=== PATIENT | male | born 1985 | race Caucasian/White ===

== ENCOUNTER 2022-06-20 02:34 | Emergency (ER) | payer OTHER, SELFPAY ==
--- NOTE | ~2022-06-20 | XR_ITS ---
XR ankle LT min 3V 06/20/2022 02:55 INDICATION: Left ankle pain PROCEDURE: 4 views left ankle COMPARISON: 06/20/2022 FINDINGS: Fracture, dislocation or subluxation is not identified. The soft tissues appear within norm al limits. No foreign bodies are identified. IMPRESSION: 1: NO ACUTE BONE OR JOINT ABNORMALITY IDENTIFIED. Reviewed, dictated and finalized at location A.
--- NOTE | ~2022-06-20 | XR_ITS ---
XR foot LT min 3V 06/20/2022 02:55 INDICATION: Left foot pain after injury PROCEDURE: 4 views left foot COMPARISON: No prior studies for comparison. FINDINGS: Fracture, dislocation or subluxation is not identified. Lisfranc joint intact. The soft tis sues appear within normal limits. No foreign bodies are identified. IMPRESSION: 1: NO ACUTE BONE OR JOINT ABNORMALITY IDENTIFIED. Reviewed, dictated and finalized at location A.
[2022-06-20 02:36] VITALS: BP 117/69; PULSE 75; RESP 20; TEMP 36.7; O2SAT 100
--- NOTE | 2022-06-20 04:25 | ED_ITS ---
HPI - Extremity Injury (Lower) General Chief Complaint: Extremity Injury, Lower Stated Complaint: ankle pain Time Seen by Provider: 06/20/22 03:49 History of Present Illness HPI Narrative: Patient is a 37-year-old male presenting with left ankle pain. Patient was playing hockey last night when he was struck the medial aspect of his left foot/ankle with a puck. States he has had severe pain since this time that is worse with ambulation. He has not tried anything for pain. He denies numbness or weakness. He denies further injury or complaint. Review of Systems Review of Systems: All systems reviewed & are unremarkable except as noted in HPI and below Exam Narrative: GENERAL: Well-appearing, well-nourished, and in no acute distress. HEAD: Normocephalic, atraumatic. EYES: PERRLA and EOMI. ENT: Nares clear, no rhinorrhea or epistaxis. Mucous membranes moist. NECK: Supple. CHEST: Clear to auscultation. No respiratory distress. HEART: Regular rate and rhythm. No murmur heard. Normal peripheral pulses. ABDOMEN: Soft, nontender, nondistended, normal active bowel sounds. EXTREMITIES: Normal range of motion. Ecchymosis and tenderness to medial aspect of the left foot extending into the medial malleolus, neurovascularly intact SKIN: Warm, dry, no rash. NEURO: No focal deficits. Alert and oriented x3. PSYCH: Normal mood and affect. Course Vital Signs Vital signs: Vital Signs Temperature 98.1 F 06/20/22 02:36 Pulse Rate 75 06/20/22 02:36 Respiratory Rate 20 06/20/22 02:36 Blood Pressure 117/69 06/20/22 02:36 Pulse Oximetry 100 06/20/22 02:36 Oxygen Delivery Room Air 06/20/22 02:36 Temperature 98 F 06/20/22 04:38 Pulse Rate 70 06/20/22 04:38 Respiratory Rate 18 06/20/22 04:38 Blood Pressure 118/79 06/20/22 04:38 Pulse Oximetry 99 06/20/22 04:38 Oxygen Delivery Room Air 06/20/22 02:36 MDM - Extremity Injury (Lower) MDM Narrative Medical decision making narrative: Patient is a 37-year-old male presenting with left foot pain after being struck by a hockey puck. Vitals within normal limits. Patient is well-appearing and in no acute distress. X-rays of the left ankle and foot show no acute osseous abnormalities. Patient was given Tylenol and ibuprofen for pain control. Advis ed rest, elevation, ice for the next several days. Appropriate return precautions given. Advised to follow-up with his PCP. Patient voiced understanding and is agreeable with plan. Discharged in stable condition. Differential Diagnosis Differential diagnosis: Likely ankle sprain and strain and ankle fracture Critical Care Time Critical Care Time Critical Care Time: No Discharge Plan Discharge Clinical Impression: Ankle contusion Patient Disposition: Home, Self-Care Condition: Stable Instructions: Antibiotic Form, Foot Contusion (ED) Additional Instructions: Please use Tylenol and ibuprofen for pain control. Please elevate your foot and apply ice. Please follow-up with your PCP. If your pain suddenly worsens, you develop numbness or weakness, or other concerning symptoms arise, please return to the ER. Follow-up/Referrals: PHYSICIAN,[facility] [Primary Care Provider] - Stand Alone Forms: Work/School Release IP
[2022-06-20 04:38] VITALS: BP 118/79; PULSE 70; RESP 18; TEMP 36.6; O2SAT 99
[2022-06-20] MEDS: IBUPROFEN 400 MG TABLET 800 MG PO (04:39)
[2022-06-20] MEDS: ACETAMINOPHEN 500 MG TABLET 1000 MG PO (04:39)
== END 2022-06-20 04:39 | disposition home or self-care (01) ==
PROVIDERS: Emergency Provider Emergency Medicine
DX: S90.02XA Contusion of left ankle, initial encounter (principal); W21.220A Struck by ice hockey puck, initial encounter; Y93.69 Activity, other involving other sports and athletics played as a team or group
CPT/HCPCS: 73610; 73630; 99283; A9270